=== PATIENT | female | born 1990 | race Two or more races ===

== ENCOUNTER → 2022-11-23 | Emergency (ER) | payer OTHER ==
[~2022-11-23] VITALS: Ht 162.6 cm; Wt 59.9 kg
[~2022-11-23] MED LIST: PRENATA CHEWAB1 EACH PO
== END | disposition left against medical advice (07) ==
LOC: ER 22:42
DX: Z53.21 Procedure and treatment not carried out due to patient leaving prior to being seen by health care provider (principal)

== ENCOUNTER 2022-12-26 13:19 | Outpatient (CLI) | payer OTHER | END 2022-12-26 15:12 | disposition home or self-care (01) | LOC: PRENATAL 13:19 | PROVIDERS: ATTEND Obstetrics & Gynecology Maternal & Fetal Medicine | DX: O35.3XX0 Maternal care for (suspected) damage to fetus from viral disease in mother, not applicable or unspecified (principal); Z3A.24 24 weeks gestation of pregnancy ==

== ENCOUNTER 2023-01-14 15:54 | Inpatient (IN) | payer OTHER ==
[~2023-01-14] VITALS: Ht 165.1 cm; Wt 62.6 kg
== END 2023-01-23 19:24 | disposition home or self-care (01) | DRG 833 ==
LOC: OB/GYN 15:54 → LDR 15:54 → OB/GYN 01-15 13:31 → LDR 01-15 17:33 → OB/GYN 01-18 08:12
PROVIDERS: ADMIT Obstetrics & Gynecology; ATTEND Obstetrics & Gynecology
PROC: 4A1HXCZ Monitoring of Products of Conception, Cardiac Rate, External Approach (ICD-10-PCS; principal; 2023-01-14)
PROC: BY4CZZZ Ultrasonography of Second Trimester, Single Fetus (ICD-10-PCS; 2023-01-14)
PROC: BW40ZZZ Ultrasonography of Abdomen (ICD-10-PCS; 2023-01-14)
PROC: BF37ZZZ Magnetic Resonance Imaging (MRI) of Pancreas (ICD-10-PCS; 2023-01-16)
PROC: 0F798ZZ Dilation of Common Bile Duct, Via Natural or Artificial Opening Endoscopic (ICD-10-PCS; 2023-01-19)
DX: O99.612 Diseases of the digestive system complicating pregnancy, second trimester (principal); K80.80 Other cholelithiasis without obstruction; Z3A.27 27 weeks gestation of pregnancy; K80.70 Calculus of gallbladder and bile duct without cholecystitis without obstruction; Z20.822 Contact with and (suspected) exposure to COVID-19

== ENCOUNTER 2023-02-19 15:28 | Outpatient (CLI) | payer OTHER | END 2023-02-19 16:45 | disposition home or self-care (01) | LOC: PRENATAL 15:28 | PROVIDERS: ATTEND Obstetrics & Gynecology Maternal & Fetal Medicine | DX: O26.849 Uterine size-date discrepancy, unspecified trimester (principal); O36.8199 Decreased fetal movements, unspecified trimester, other fetus; O35.9XX0 Maternal care for (suspected) fetal abnormality and damage, unspecified, not applicable or unspecified; Z3A.32 32 weeks gestation of pregnancy ==

== ENCOUNTER 2023-04-12 06:14 | Inpatient (IN) | payer OTHER ==
[~2023-04-12] VITALS: Ht 160 cm; Wt 67.1 kg
[2023-04-13] MEDS ORDERED: RHOGAM ULTR1500 UNIT IM (14:43)
[2023-04-14] MEDS ORDERED: IBU800 MG PO (09:15)
[2023-04-14] MEDS ORDERED: COLACE100 MG PO (09:15)
== END 2023-04-14 12:34 | disposition home or self-care (01) | DRG 807 ==
LOC: LDR 06:14 → OB/GYN 14:26
PROVIDERS: ADMIT Obstetrics & Gynecology; ATTEND Obstetrics & Gynecology
PROC: 10E0XZZ Delivery of Products of Conception, External Approach (ICD-10-PCS; principal; 2023-04-12)
PROC: 4A1HXCZ Monitoring of Products of Conception, Cardiac Rate, External Approach (ICD-10-PCS; 2023-04-12)
DX: O80 Encounter for full-term uncomplicated delivery (principal); Z37.0 Single live birth; Z3A.39 39 weeks gestation of pregnancy; Z20.822 Contact with and (suspected) exposure to COVID-19